=== PATIENT | male | born 1955 | race Caucasian/White ===

== ENCOUNTER 2019-11-03 01:23 | Day surgery (SDC) | payer MEDICARE, SELFPAY ==
[2019-10-26 15:05] VITALS: BMI 33.0
--- NOTE | 2019-11-02 10:30 | HP_ITS ---
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 When he accumulates wax, it is difficult to clean it out. PHYSICAL EXAMINATION: CHEST: Clear. HEART: Without murmurs. ABDOMEN: Soft. EXTREMITIES: Negative. REVIEW OF SYSTEMS: Unremarkable. PLAN: 1. Excision osteoma. 2. Wide excision ear canal. D I MT: Luz
[2019-11-03] VITALS (8 sets, daily range): BP systolic 110–156; BP diastolic 62–94; PULSE 63–73; RESP 11–18; TEMP 36.1; O2SAT 95–99
--- NOTE | 2019-11-03 05:54 | WPDHPUPDATE1 ---
History and Physical Update Update Date/Time: 11/03/19 05:54 History and Physical has been reviewed, including an updated exam of the patient. There are NO changes in the patient's condition. Risks, benefits, and alternatives have been discussed and questions answered. Patient agrees to proceed with procedure.
[2019-11-03] MEDS: LACTATED RINGERS 1,000 ML 30 ML IV CONT (09:25)
--- NOTE | 2019-11-03 09:27 | WPDANESEPPF ---
Anes - Initial Pre Proc Eval Procedure: Operation Date: 11/03/19 11:00 Proposed Procedures p Excision Osteoma Left Ear - Ja Nolan MD Date/Time: 11/03/19 09:27 Surgeon: Ja Nolan MD Pre Op Diagnosis: Osteoma Left Ear Patient Data Age: 64 Gender: M Height: 5 ft 10 in Weight: 106 kg Allergies Allergy/AdvReac Type Severity Reaction Status Date / Time No Known Allergies Allergy Unverified 11/03/19 09:08 Home Medications Medication Instructions Recorded Confirmed Type amlodipine 10 mg PO HS 10/26/19 11/03/19 History hydrochlorothiazide 25 mg PO HS 10/26/19 11/03/19 History metformin 500 mg PO DAILY 10/26/19 11/03/19 History metoprolol succinate 50 mg PO HS 10/26/19 11/03/19 History Patient hx anesthesia problems: post op nausea/vomiting Family hx anesthesia problems: none PMFSH Past Medical History Medical History Diabetes Hypertension Obesity Anes - Eval Final PreProcedure Day of Procedure 11/03/19 09:27 Patient weight: obese Heart: regular rate and rhythm Lungs: clear to auscultation Airway: Mallampati scale class II Neurological: alert and oriented Last oral intake: >/= 8 hours ASA classification: III Emergent: no Anesthetic plan: proceed Anesthesia type and monitoring: general LMA and standard monitoring Informed Consent: The patient's anesthetic plan and its attendant risks and benefits were discussed with the patient/family/POA. Questions were solicited and answers provided to the satisfaction of the patient/family/POA.
[2019-11-03 09:35] LABS: Glucose Point of Care 133 (65-105)
[2019-11-03] MEDS: SCOPOLAMINE 1.5 MG PATCH TRANSDERM (09:43)
[2019-11-03] MEDS: LIDO 1%/EPINEPHRINE 1:100,000 20 ML VIAL INFILTRATE (10:57)
[2019-11-03] MEDS: CIPROFLOXACIN HCL 0.3% OP SOLN 2.5 ML BTL 4 DROP EACH EAR (10:58)
--- NOTE | 2019-11-03 11:01 | SUR.OPER ---
Neosporin Plus put in Left Ear per Dr Nolan
--- NOTE | 2019-11-03 11:12 | PM.OP ---
Procedure Note - Brief Procedure Note - Brief Date of procedure: 11/03/19 Pre-op diagnosis: Osteoma Left Ear Surgeon: Ja Nolan MD
--- NOTE | 2019-11-03 11:16 | PM.OP ---
Procedure Note - Brief Procedure Note - Brief Date of procedure: 11/03/19 Pre-op diagnosis: Osteoma Left Ear Procedure performed: Patient was prepped and draped general anesthesia the left ear sterilely prepped and draped inspection of the ear revealed a stenosis several mm lateral to the tympanic membrane. With a 2. Knife a circumferential incision was made around the tube as the ear canal skin was removed and packed with Surgicel Anesthesia: GLMA Surgeon: Ja Nolan MD Estimated blood loss (mL): 0 Drains: No Packing: Yes (surgicel) Pathology: none sent Condition: critical Disposition: PACU
[2019-11-03 12:03] LABS: Glucose Point of Care 132 (65-105)
== END 2019-11-03 13:00 | disposition home or self-care (01) ==
PROVIDERS: PCP Internal Medicine; Visit Provider Otolaryngology
PROC: (CPT 69140; principal; 2019-11-03 11:00)
DX: H61.812 Exostosis of left external canal (principal); I10 Essential (primary) hypertension; E11.9 Type 2 diabetes mellitus without complications; E66.9 Obesity, unspecified; Z68.33 Body mass index [BMI] 33.0-33.9, adult; Z79.84 Long term (current) use of oral hypoglycemic drugs
CPT/HCPCS: 69140; 36415; 80048; 93005; A9270; J0171; J1100; J2250; J2405; J2704; J3010; J7120

== ENCOUNTER 2021-01-08 15:15 | Emergency (ER) | payer MEDICARE, SELFPAY ==
--- NOTE | ~2021-01-08 | CT_ITS ---
EXAMINATION: CT abdomen pelvis wo con DATE: 01/08/2021 18:17 INDICATION: Right flank pain. TECHNIQUE: Computed tomography (CT) of the abdomen and pelvis was performed without intravenous contr ast. Automated exposure control and iterative reconstruction technique were employed. The dose-length product was 438.16 mGy-cm. COMPARISON: None. FINDINGS: The visualized portions of the lung bases demonstrate a 4 mm nodule in left lower lobe, lik rosa benign. No pleural effusion. The heart size is normal. No pericardial effusion. There is a small sliding hiatal hernia. The liver, gallbladder, spleen, pancreas, and adrenal glands are normal. There are cysts in right kidney measuring up to 6.0 cm. There is a 1.5 cm mass in right kidney measuring s oft tissue attenuation. There is no urolithiasis. There are no dilated loops of bowel. The appendix i s normal. There are no pathologically enlarged lymph nodes. There is no free intraperitoneal fluid. T here is a right inguinal hernia containing fat. There is mild thoracolumbar spondylosis. IMPRESSION: 1. No urolithiasis. 2. 1.5 cm mass in right kidney, which may be a hemorrhagic cyst or less likely a neoplasm. Abdomen CT without and with contrast is recommended. 3. Small sliding hiatal hernia. 4. Small right inguinal hernia containing fat. Reviewed, dictated and finalized at location A.
[2021-01-08 15:49] VITALS: BP 153/80; PULSE 97; RESP 18; TEMP 36.8; O2SAT 100
[2021-01-08 16:18] LABS: Basophils Percent Auto 0.2 % (0.2-1.2); Eosinophils Percent Auto 0.2 % (0-4.4); Hematocrit 46.8 % (42.0-52.0); Hemoglobin 16.4 g/dL (14.0-18.0); Immature Granulocyte Absolute 0.11 K/mm3 (0.00-0.031); Immature Granulocyte Percent A 0.6 % (0-0.5); Lymphocytes Absolute Auto 1.51 K/mm3 (0.9-3.2); Lymphocytes Percent Auto 8.1 % (18.3-44.2); Mean Corpuscular Hemoglobin 29.1 pg (26-34); Mean Platelet Volume 9.9 fl (7.4-10.4); Monocytes Absolute Auto 1.4 K/mm3 (0.1-0.6); Monocytes Percent Auto 7.7 % (2.6-8.5); Neutrophils Absolute Auto 15.5 K/mm3 (1.3-6.7); Neutrophils Percent Auto 83.2 % (45.5-73.1); Platelet Count Result 232 k/mm3 (150-375); Red Blood Count 5.64 M/mm3 (4.6-6.20); Red Cell Distribution Width 12.2 % (11.5-14.5); White Blood Count 18.6 K/mm3 (4.5-10.0)
[2021-01-08 16:25] LABS: Add Urine Microscopic? YES; Appearance Urine Clear (Clear); Bacteria Urine 3+ /hpf; Bilirubin Urine Negative (Negative); Blood Urine 1+ (Negative); Color Urine Yellow (Yellow); Glucose Urine UA Negative (Negative); Ketones Urine Negative (Negative); Leukocyte Esterase Ur 2+ LEU/UL (Negative); Mucus Urine Rare /lpf; Nitrate Urine Negative (Negative); Protein Urine 1+ mg/dL (Negative); RBC Urine 0-2 /hpf (0-2); Specific Grav Ur 1.009 (1.001-1.035); Urobilinogen Urine Negative mg/dL (<2.0); WBC Urine 31-50 /hpf
[2021-01-08 17:13] LABS: Anion Gap 8 mmol/L (8-16); Blood Urea Nitrogen 11 mg/dL (9-20); Carbon Dioxide 33 mmol/L (22-30); Chloride 93 mmol/L (98-107); Estimated CRCL calculation 95 ml/min; Estimated Glomerular Filt Rate > 60; Glucose 123 mg/dL (75-110); Potassium 3.2 mmol/L (3.4-5.0); Sodium 134 mmol/L (137-145)
[2021-01-08] MEDS: HYDROcodone/acetaminophen (*CRX) 5-325 MG TABLET 1 TAB PO (19:10)
--- NOTE | 2021-01-08 19:44 | ED.ABDPAIN ---
HPI - Abdominal Pain General Chief Complaint: Urogenital-Male Stated Complaint: r flank pain Time Seen by Provider: 01/08/21 16:42 Source: patient Mode of arrival: ambulatory Limitations: no limitations History of Present Illness HPI narrative: 65-year-old male Basically pretty healthy, takes Metformin once a day because his hemoglobin A1c was 7 according to the patient Reports that 2 or 3 days ago he had really sharp pains in his flank as if he was passing a kidney stone Those have now resolved however he still reports some low-grade fevers, general achiness and malaise, and dysuria No nausea or vomiting no other GI symptoms no cough Related Data Home Medications Medication Instructions Recorded Confirmed amlodipine 10 mg PO HS 10/26/19 11/03/19 hydrochlorothiazide 25 mg PO HS 10/26/19 11/03/19 metformin 500 mg PO DAILY 10/26/19 11/03/19 metoprolol succinate 50 mg PO HS 10/26/19 11/03/19 Allergies Allergy/AdvReac Type Severity Reaction Status Date / Time No Known Allergies Allergy Verified 01/08/21 15:53 Review of Systems Review of Systems: All systems reviewed & are unremarkable except as noted in HPI and below Constitutional: Constitutional: Reports chills, Reports fever(s) and Denies headache(s) Eyes: Eyes: Reports no additional eye complaints and Denies change in vision ENT: Denies headache(s) and Denies sore throat Cardiovascular: Cardiovascular: Denies chest pain and Denies dyspnea Respiratory: Respiratory: Denies cough and Denies dyspnea Gastrointestinal: Gastrointestinal: Denies abdominal pain, Denies diarrhea and Denies vomiting Genitourinary: Genitourinary: Reports as per HPI, Reports dysuria and Reports urinary frequency Musculoskeletal: Musculoskeletal: Denies deformity, Denies arthralgias, Denies joint swelling and Denies numbness Integumentary/Breasts: Skin/Breast: Denies rash and Denies wounds Neurologic: Denies headache(s), Denies focal weakness and Denies numbness Psychiatric: Psychiatric: Reports no additional psychiatric complaints Endocrine: Endocrine: Reports no additional endocrine complaints Hematologic/Lymphatic: Hematologic/Lymphatic: Reports no additional hematologic/lymphatic complaints Allergic/Immunologic: Allergic/Immunologic: Reports no additional allergic/immunologic complaints [facility] Past Medical History Medical History (Updated 01/08/21 @ 20:07 by Srinivas Olivas MD) Diabetes Hypertension Obesity Social History Social History (Updated 10/11/20 @ 09:33 by Lanie Peraza CMA) Smoking status: Never smoker Second hand tobacco smoke exposure: No Alcohol intake: never Substance use: never Substance use type: does not use Gender identity (if verbalized by the patient): Male Exam Const: General: cooperative and no acute distress Orientation/consciousness: patient oriented x3 (alert) HENMT: Head: normal to inspection, normocephalic and atraumatic Ears: external ears normal General nose exam: no epistaxis Eyes: Conjunctivae: conjunctivae normal EOM: EOMs intact bilaterally Neck: Neck: normal visual inspection, supple and no JVD Resp: Effort & Inspection: normal respiratory effort and not labored Auscultation: clear to auscultation bilaterally and other (BS =) Cardio: Rate: regular rate Rhythm: regular rhythm GI: GI Palp: Yes Soft to palpation and No Tenderness to palpation present (GI) Skin: General skin exam: normal color and no rashes or lesions noted Neuro: General: patient oriented x3 (alert) and moves all extremities Speech: normal speech Extrem: General: normal to inspection and no pedal edema Psych: Affect: normal affect Course Course Emergency Course: Discussed diagnosis with patient and that depending on how he feels he might be appropriate for brief hospitalization versus antibiotics at home Patient feels like he does not feel sufficiently bad to be hospitalized and would be much more comfortable at home,
[2021-01-08] MEDS: POTASSIUM CHLORIDE 20 MEQ PACKET (FOR LIQUID) 40 MEQ PO (19:53)
[2021-01-08 20:07] VITALS: BP 147/87; PULSE 99; RESP 18; TEMP 36.7; O2SAT 98
[2021-01-08 20:48] VITALS: BP 142/78; PULSE 89; RESP 18; O2SAT 99
== END 2021-01-08 20:51 | disposition home or self-care (01) ==
PROVIDERS: Emergency Provider Emergency Medicine; PCP Internal Medicine
DX: N10 Acute pyelonephritis (principal); E11.9 Type 2 diabetes mellitus without complications; I10 Essential (primary) hypertension; E66.9 Obesity, unspecified; Z68.34 Body mass index [BMI] 34.0-34.9, adult; Z79.84 Long term (current) use of oral hypoglycemic drugs; N28.89 Other specified disorders of kidney and ureter; K44.9 Diaphragmatic hernia without obstruction or gangrene; K40.90 Unilateral inguinal hernia, without obstruction or gangrene, not specified as recurrent
CPT/HCPCS: 36415; 74176; 80048; 81001; 85025; 87077; 87086; 87088; 87186; 96365; 99284; A9270; J0696